=== PATIENT | male | born 1995 | race Caucasian/White ===

== ENCOUNTER 2021-09-15 05:08 | Day surgery (SDC) | payer BC ==
[2021-09-14 13:27] VITALS: BMI 22.8
[2021-09-15 14:24] VITALS: PULSE 70; TEMP 97.1
[2021-09-15 14:30] VITALS: BP 120/80
== END 2021-09-15 15:30 | disposition home or self-care (01) ==
LOC: JASU-SURG 05:08
PROVIDERS: ATTEND Pain Medicine Pain Medicine
PROC: 3E0U33Z Introduction of Anti-inflammatory into Joints, Percutaneous Approach (ICD-10-PCS; principal; 2021-09-15)
DX: M25.552 Pain in left hip (principal)
CPT/HCPCS: 76000-TC-FY

== ENCOUNTER 2022-06-07 17:06 | Emergency (ER) | payer BC ==
[2022-06-07 17:14] VITALS: BP 137/77; PULSE 100; RESP 18; TEMP 97.8; BMI 21.6
[2022-06-07] MEDS ORDERED: ASPIRIN 325 MG TABLET PO ONE (18:14)
[2022-06-07] MEDS ORDERED: ASPIRIN 325 MG TABLET ONE (18:32)
[2022-06-07 19:14] LABS: BASO % 0.5 % (0-2.0); EOS % 0.6 % (0-4.5); HEMATOCRIT 43.6 % (35.4-49); HEMOGLOBIN 14.7 GM/dL (11.7-16.9); LYMPH % 13.6 % (8-40); MCH 28.4 pg (25.7-33.7); MCHC 33.8 g/dl (32.0-35.9); MEAN CELL VOLUME 84.1 fl (80-96); MEAN PLT VOLUME 8.3 fl (7.5-11.1); MONO % 5.2 % (3.8-10.2); NEUT % 80.1 % (42.8-82.8); PLATELET COUNT 208 10^3/uL (134-434); RBC 5.18 M/mm3 (4.00-5.60); RDW 12.6 % (11.9-15.9); WHITE BLOOD COUNT 9.8 K/mm3 (4.0-10.0)
[2022-06-07 19:16] LABS: PH,URINE 6.5 (5.0-8.0); URINE APPEARANCE CLEAR; URINE BILIRUBIN NEGATIVE (NEGATIVE); URINE COLOR YELLOW; URINE GLUCOSE (UA) NEGATIVE (NEGATIVE); URINE KETONE NEGATIVE (NEGATIVE); URINE LEUK ESTERASE NEGATIVE (NEGATIVE); URINE NITRITE NEGATIVE (NEGATIVE); URINE PROTEIN NEGATIVE (NEGATIVE); URINE UROBILINOGEN 0.2 mg/dL (0.2-1.0)
[2022-06-07 19:29] LABS: CHLORIDE 106 mmol/L (98-107); SODIUM 140 mmol/L (136-145)
[2022-06-07 19:32] LABS: BLOOD UREA NITROGEN 11.8 mg/dL (7-18); CALCIUM 9.5 mg/dL (8.5-10.1)
[2022-06-07 19:33] LABS: ALBUMIN 4.4 g/dl (3.4-5.0); ANION GAP 6 MMOL/L (8-16); CO2 27 mmol/L (21-32); GLUCOSE,RANDOM 93 mg/dL (74-106); MAGNESIUM 2.3 mg/dL (1.8-2.4)
[2022-06-07 19:36] LABS: CREATININE 1.1 mg/dL (0.55-1.3); SGOT/AST 25 U/L (15-37); SGPT/ALT 33 U/L (13-61)
[2022-06-07 19:38] LABS: ALK PHOS 81 U/L (45-117)
[2022-06-07 19:42] LABS: BILIRUBIN,TOTAL 0.6 mg/dL (0.2-1)
== END 2022-06-07 20:30 | disposition home or self-care (01) ==
LOC: JERFT 17:06 → JER 17:06 → JERFT 20:30
DX: F41.9 Anxiety disorder, unspecified (principal)
CPT/HCPCS: 71046-TC-FY; 80053; 81003; 83735; 84484; 85025; 93005; 93010; 99285-25